=== PATIENT | female | born 2000 | race Caucasian/White ===

== ENCOUNTER 2019-12-17 19:15 | Emergency (ER) | payer OTHER ==
[~2019-12-17] VITALS: Ht 165.1 cm; Wt 99.3 kg
[2019-12-17 19:16] VITALS: BP 117/79
[2019-12-17] MEDS ORDERED: PREDNISONE 20 M20 M1 PO (20:00)
[2019-12-17] MEDS ORDERED: BENADRYL25 MG PO (20:00)
[2019-12-17] MEDS ORDERED: FAMOTIDINE20 MG PO (20:00)
== END 2019-12-17 20:08 | disposition home or self-care (01) ==
LOC: ER 19:15
DX: J30.81 Allergic rhinitis due to animal (cat) (dog) hair and dander (principal); F90.9 Attention-deficit hyperactivity disorder, unspecified type